=== PATIENT | male | born 1995 | race African-American/Black ===

== ENCOUNTER 2019-11-19 10:27 | Emergency (ER) | payer SELFPAY ==
[2019-11-19 10:37] VITALS: BP 129/70; PULSE 91; RESP 20; TEMP 36.8; O2SAT 100
--- NOTE | 2019-11-19 12:24 | ED.URI ---
HPI - URI/Sore Throat General Chief Complaint: Upper Respiratory Infection Stated Complaint: headache, body aches Time Seen by Provider: 11/19/19 11:26 Source: patient Mode of arrival: ambulatory Limitations: no limitations History of Present Illness HPI Narrative: Patient presents with chief complaint of headache, sore throat, body aches, cough that has been present for 2 days. Patient states everyone in his home has had similar symptoms. Patient states that they have not been seen, because he did not go to work today he needed to be seen. Patient not receive a flu shot this year. Patient has not had any chest pain, shortness of breath, nausea, vomiting, diarrhea. Patient denies having any chronic medical history. Patient denies taking any medications on a daily basis. Related Data Allergies Allergy/AdvReac Type Severity Reaction Status Date / Time No Known Allergies Allergy Verified 11/19/19 12:39 Review of Systems Review of Systems: Narrative: CONSTITUTIONAL: Denies fever, chills, or sweats. EYES: Denies visual changes, redness, or discharge. ENT: Reports rhinorrhea, congestion, sore throat, denies otalgia. CARDIOVASCULAR: Denies chest pain, palpitations, or edema. RESPIRATORY: Reports cough denies dyspnea. GASTROINTESTINAL: Denies abdominal pain, nausea, vomiting, or diarrhea. GENITOURINARY: Denies dysuria or hematuria. SKIN: Denies rash or itching. MUSCULOSKELETAL: Denies back pain, joint pain, or myalgia. NEUROLOGIC: Reports headache, denies numbness, dizziness, or weakness. PSYCHIATRIC: Denies anxiety or depression. Exam Narrative: Exam Narrative: GENERAL: Well-appearing, well-nourished, and in no acute distress. HEAD: Normocephalic, atraumatic. EYES: PERRLA and EOMI. ENT: Nares clear, no rhinorrhea or epistaxis. Mucous membranes moist. Oropharynx without tonsillar hypertrophy exudate or other lesions. Bilateral TMs pearly sanderson nonbulging NECK: Supple. No adenopathy or masses. No carotid bruits or JVD CHEST: Clear to auscultation. No respiratory distress. No wheezes rales or rhonchi HEART: Regular rate and rhythm. No murmur heard. Normal peripheral pulses. EXTREMITIES: Normal range of motion. No edema. SKIN: Warm, dry, no rash. NEURO: No focal deficits. Alert and oriented x3. PSYCH: Normal mood and affect. Course Vital Signs Vital signs: Vital Signs Temperature 98.2 F 11/19/19 10:37 Pulse Rate 91 11/19/19 10:37 Respiratory Rate 11/19/19 10:37 Blood Pressure 129/70 11/19/19 10:37 Pulse Oximetry 100 11/19/19 10:37 Temperature 98.2 F 11/19/19 10:37 Pulse Rate 91 11/19/19 10:37 Respiratory Rate 20 11/19/19 10:37 Blood Pressure 129/70 11/19/19 10:37 Pulse Oximetry 100 11/19/19 10:37 MDM - URI/Sore Throat MDM Narrative Medical decision making narrative: Patient tested negative for strep. Patient is positive for influenza B. discussed with patient risk and benefits of Tamiflu and Xofluza. Patient requests Tamiflu. Instructed patient to rest, drink fluids, follow-up with his primary care if he has any other questions or concerns. The patient to return to emergency department if he develops any concerning complications or emergent symptoms. Differential Diagnosis Differential diagnosis: Likely upper respiratory infection, croup, otitis media, sinusitis, viral infection, bronchitis, influenza and pharyngitis Lab Data Labs: Influenza A Screen Negative Reference Range: Negative Influenza B Screen Positive Reference Range: Negative Strep Screen Presumptive Negative *(Reference Range: Negative)* Discharge Plan Discharge Clinical Impression: Influenza Patient Disposition: Home, Self-Care Condition: Stable Instructions: Antibiotic Form, Influenza (ED) Additional Instructions: Take Tamiflu as directed. You have been given a note for work for 5 days. Tylenol or Motrin for discomfort or over-the
[2019-11-19 12:50] VITALS: BP 124/75; PULSE 85; RESP 19; O2SAT 100
== END 2019-11-19 12:57 | disposition home or self-care (01) ==
PROVIDERS: Emergency Provider Emergency Medicine
DX: J10.1 Influenza due to other identified influenza virus with other respiratory manifestations (principal)
CPT/HCPCS: 87081; 87804; 87880; 99283

== ENCOUNTER 2024-01-23 11:12 | Emergency (ER) | payer OTHER, SELFPAY ==
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
[2024-01-23 11:21] VITALS: BP 117/62; PULSE 71; RESP 16; TEMP 36.6; O2SAT 100
[2024-01-23 12:15] VITALS: BP 124/80; PULSE 60; RESP 17; O2SAT 100
[2024-01-23] MEDS: KETOROLAC (*BKC) 60 MG/2 ML VIAL IM (12:54)
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
[2024-01-23 13:57] VITALS: BP 122/75; PULSE 72; RESP 17; TEMP 36.7; O2SAT 100
== END 2024-01-23 14:00 | disposition home or self-care (01) ==
LOC: ANHED 14:03
PROVIDERS: Emergency Provider Emergency Medicine
DX: S49.92XA Unspecified injury of left shoulder and upper arm, initial encounter (principal); S39.92XA Unspecified injury of lower back, initial encounter; V49.40XA Driver injured in collision with unspecified motor vehicles in traffic accident, initial encounter
CPT/HCPCS: 72100; 73030; 96372; 99284; J1885

== ENCOUNTER 2024-04-09 09:22 | Emergency (ER) | payer SELFPAY ==
[2024-04-09 09:24] VITALS: BP 142/96; PULSE 76; RESP 20; TEMP 36.4; O2SAT 99
--- NOTE | 2024-04-09 12:08 | PC.NURSE ---
pt to desk and reports he needs to go to other appointments and will return later to ED
== END 2024-04-09 12:25 | disposition left against medical advice (07) ==
DX: M54.2 Cervicalgia (principal)
CPT/HCPCS: 99199

== ENCOUNTER 2024-04-09 18:31 | Emergency (ER) | payer OTHER, SELFPAY ==
--- NOTE | ~2024-04-09 | CT_ITS ---
EXAMINATION: CT cervical spine wo con DATE: 04/09/2024 20:18 INDICATION: neck pain TECHNIQUE: Computed tomography (CT) of the cervical spine was performed without intravenous contrast. Automated exposure control and iterative reconstruction technique were employed. The dose-length pro duct was 551.73 mGy-cm. COMPARISON: None. FINDINGS: Vertebral Body Alignment: Intact. Craniocervical and atlantoaxial alignment: Mild degenerative change. Alignment intact. Osseous structures/fracture: No evidence of a lytic or blastic process in the visualized spine. No e vidence of acute fracture. Cervical soft tissues: The paraspinal soft tissues planes are maintained. Degenerative changes: Mild degenerative changes, without severe neural foraminal or central canal soledad rowing. IMPRESSION: No acute fracture or traumatic malalignment in the cervical spine. Reviewed, dictated and finalized at location K.
[2024-04-09 18:40] VITALS: BP 143/78; PULSE 75; RESP 20; TEMP 36.9; O2SAT 97
--- NOTE | 2024-04-09 20:27 | ED.GENADULT ---
HPI - General Adult General Chief complaint: Neck Pain/Injury Stated complaint: neck pain Time Seen by Provider: 04/09/24 20:05 History of Present Illness HPI narrative: Patient is a 29-year-old male who presents to the emergency department this evening complaining of right-sided neck pain. Patient states that the pain started after lifting a heavy piece of furniture while at work. Patient states that for the past few he has been placed on light weight duty at work status post a wrist injury. Patient states that Saturday was the 1st that he was asked to lift something heavy which he is not supposed to do. Shortly after that he started to have right-sided neck pain. Patient states that certain neck movements will cause a shooting pain down his right arm. Patient denies any history of neck injuries. He admits to heavy lifting at work up until his wrist injury. Patient states that he decided to wait at home for the last couple of days to see if the pain would go away, however, when it did not he decided come in for further evaluation. He denies any additional injuries or concerns at this time. Related Data Allergies Allergy/AdvReac Type Severity Reaction Status Date / Time No Known Allergies Allergy Verified 04/09/24 18:48 Review of Systems Review of Systems: All systems are reviewed and are negative unless stated otherwise in the HPI. [facility] Past Medical History Medical History Healthy adult male Surgical History Surgical History History of knee surgery Exam Narrative: General: Alert, awake, afebrile, in no acute distress. HEENT: PERRL, no rhinorrhea, no post nasal drip, oropharynx clear. Neck: No midline cervical spine tenderness to palpation. Cardiovascular: Regular rate and rhythm, no murmurs, rubs or gallops, no peripheral edema. Respiratory: Clear to auscultation bilaterally, no tachypnea, no wheezing, no rhonchi, no rubs, no respiratory distress. Abdomen: Soft, nontender, nondistended, no rebound, no guarding, no peritoneal signs. Musculoskeletal: No joint swelling or deformity, normal muscle tone. Skin: No rashes or petechia, no signs of infection. Neurological: Alert and oriented to person, place, and time. Follows all commands. No focal deficits, speech is clear and fluent. Course Vital Signs Vital signs: Vital Signs Temperature 98.4 F 04/09/24 18:40 Pulse Rate 75 04/09/24 18:40 Respiratory Rate 20 04/09/24 18:40 Blood Pressure 143/78 H 04/09/24 18:40 Pulse Oximetry 97 04/09/24 18:40 Oxygen Delivery Room Air 04/09/24 18:40 Temperature 98.4 F 04/09/24 18:40 Pulse Rate 75 04/09/24 18:40 Respiratory Rate 20 04/09/24 18:40 Blood Pressure 143/78 H 04/09/24 18:40 Pulse Oximetry 97 04/09/24 18:40 Oxygen Delivery Room Air 04/09/24 18:40 Medical Decision Making MDM Narrative Medical decision making narrative: The patient was evaluated by myself in the emergency department. History is obtained from patient who is an independent historian and physical exam was performed. External medical records were reviewed at this time. Imaging studies obtained included CT cervical spine without IV contrast which was independently interpreted by me revealing no acute process, which is pending final radiology interpretation. Differential diagnosis considerations include herniated disc, cervical fracture and musculoskeletal strain. Comorbidities impacting this visit include none. I have evaluated and discussed social determinants of health with the patient that could potentially impact subsequent diagnosis and treatment plans. On repeat assessment of the patient, reevaluation revealed that the patient is doing well and is in no acute distress. Patient symptoms have remained stable since he arrived to our emergency department. Repeat vital signs were all revi
== END 2024-04-09 21:19 | disposition home or self-care (01) ==
PROVIDERS: Emergency Provider Emergency Medicine
DX: S16.1XXA Strain of muscle, fascia and tendon at neck level, initial encounter (principal); X50.0XXA Overexertion from strenuous movement or load, initial encounter
CPT/HCPCS: 72125; 99284